=== PATIENT | male | born 1945 ===

== ENCOUNTER 2016-07-29 06:44 | Day surgery (SDC) | payer MEDICARE ==
[2016-07-29 07:26] VITALS: BMI 11.8
[2016-07-29] MEDS ORDERED: Lactated Ringer's 500 ML IV ONE (08:03)
--- NOTE | 2016-07-29 08:04 | CP.SDSHP ---
Same Day Surgery H & P - History Proposed Procedure: EGD. Colonoscopy Pre-Op Diagnosis: heartburn. epigastric pain. screening for colon cancer - Previous Medical/Surgical History Cardiac: Hypertension, Other (hyperlipidemia) Misc: Other (GERD, Gastritis) Previous Surgical History: Denies - Allergies Allergies: Allergies No Known Allergies Allergy (Verified 07/29/16 07:25) - Physical Exam Vital Signs: Vital Signs 07/29/16 07:43 Temperature 97.5 F L Pulse Rate 85 Respiratory 20 Rate Blood Pressure 139/83 O2 Sat by Pulse 96 Oximetry Mental Status: Alert & Oriented x3 Neuro: WNL Heart: WNL Lungs: WNL GI: WNL - Impression Impression: heartburn. epigastric pain. screening for colon cancer Pt. Evaluated Today:Candidate for Anesthesia & Procedure: Yes - Date & Time Date: 07/29/16 Time: 08:04 Short Stay Discharge - Short Stay Discharge Admitting Diagnosis/Reason for Visit: HEARTBURN,CONSTIPATION Disposition: HOME/ ROUTINE
[2016-07-29] MEDS ORDERED: Pantoprazole 40 mg EC Tab PO ONE (08:45)
[2016-07-29 11:51] VITALS: BP 121/79; PULSE 71; RESP 18; TEMP 97.9; O2SAT 99
== END 2016-07-29 10:35 | disposition home or self-care (01) ==
LOC: C.ENDO 06:44
PROVIDERS: ATTEND Internal Medicine Gastroenterology
DX: K29.60 Other gastritis without bleeding (principal); K59.00 Constipation, unspecified; R14.2 Eructation; D12.0 Benign neoplasm of cecum
CPT/HCPCS: 43239; 45388; 88305; 88312; 88313; 88342; J7120